=== PATIENT | female | born 1930 | race Caucasian/White ===

== ENCOUNTER → 2016-12-01 | Outpatient (CLI) | payer OTHER ==
[~2016-12-01] MED LIST: APRESOLINE25 MG PO; CARDIZEM CD300 MG PO; COUMADIN2.5 MG PO; COZAAR100 MG PO; Cardizem CD,Cartia X PO; Cozaar PO; DILTIAZEM 24HR360 M1 PO; FELDENE20 MG PO; FLOVENT 22120 INHALA IH; HYDRALAZINE HCL25 MG PO; HYDRALAZINE HCL50 MG PO; HYDROCHLOROTH12.5 M3 PO; HYDROCHLOROTH12.5 MG PO; Hydrodiuril,Oretic,E PO; IRON325 MG PO; LOSARTAN POTAS100 MG PO; NAPROXEN250 MG PO; NEXIUM40 MG PO; NORCO 5/3251 TABLET PO; PRILOSEC20 MG PO; PROAIR HFA8.5 GM IH; PROTONIX40 MG PO; Proventil,Ventolin H IH; RANITIDINE HCL150 M1 PO; RANITIDINE HCL150 MG PO; ULTRAM50 MG PO; VISTARIL25 MG PO; [UNRECOGNIZED DRUG - OTHER]
== END | disposition home or self-care (01) ==
DX: R26.2 Difficulty in walking, not elsewhere classified (principal); M62.81 Muscle weakness (generalized); M25.662 Stiffness of left knee, not elsewhere classified; Z96.652 Presence of left artificial knee joint
CPT/HCPCS: 97110 GP; 97150 GO; 97161 GP; 97165 GO; G8978 GP; G8979 GP; G8980 GP; G8987 GO; G8988 GO; G8989 GO

== ENCOUNTER 2016-12-15 08:01 | Inpatient (IN) | payer OTHER ==
[~2016-12-15] VITALS: Ht 160 cm; Wt 80.6 kg
[~2016-12-15 08:01] MED LIST changes: -COUMADIN2.5 MG PO; -NORCO 5/3251 TABLET PO; -VISTARIL25 MG PO
[2016-12-15] MEDS ORDERED: HYDRALAZINE HCL50 MG PO (09:47)
[2016-12-15 09:50] VITALS: BP 170/60
[2016-12-15] MEDS ORDERED: COUMADIN2.5 MG PO (15:18)
[2016-12-15] MEDS ORDERED: NORCO 5/3251 TABLET PO (15:18)
[2016-12-15] MEDS ORDERED: VISTARIL25 MG PO (15:18)
[2016-12-15 17:58] VITALS: BP 132/62
[2016-12-15 20:35] VITALS: BP 161/70
[2016-12-16 00:59] VITALS: BP 146/66
[2016-12-16 04:25] VITALS: BP 136/60
[2016-12-16 06:06] LABS: HEMATOCRIT 32.3 % (36.0-46.0); MCV 83.9 FL (83-99)
[2016-12-16 06:19] LABS: INTER. NORMALIZED RATIO 1.1; PROTHROMBIN TIME 10.7 (9.2-11.2)
[2016-12-16 06:33] LABS: ANION GAP 8 MEQ/L (2-14); CHLORIDE 96 MEQ/L (99-109); GFR ESTIMATE (CALCULATED) > 59 mL/min/; GLUCOSE 129 mg/dL (70-99); POTASSIUM 3.9 MEQ/L (3.7-5.4); SAMPLE HEMOLYSIS CHECK 0; SAMPLE ICTERIC CHECK 0; SAMPLE LIPEMIA CHECK 0; SODIUM 129 MEQ/L (136-147); UREA NITROGEN (BUN) 11 mg/dL (9-23)
[2016-12-16 08:08] VITALS: BP 159/69
[2016-12-16 11:56] VITALS: BP 148/63
[2016-12-16 20:20] VITALS: BP 138/62
[2016-12-17 00:32] VITALS: BP 143/63
[2016-12-17 05:53] VITALS: BP 118/72
[2016-12-17 05:58] LABS: HEMATOCRIT 30.3 % (36.0-46.0); MCV 84.9 FL (83-99)
[2016-12-17 06:55] LABS: INTER. NORMALIZED RATIO 1.1; PROTHROMBIN TIME 11.6 (9.2-11.2)
[2016-12-17 08:13] VITALS: BP 160/70
[2016-12-17 13:45] LABS: ANION GAP 7 MEQ/L (2-14); CHLORIDE 97 MEQ/L (99-109); GFR ESTIMATE (CALCULATED) > 59 mL/min/; GLUCOSE 107 mg/dL (70-99); POTASSIUM 3.9 MEQ/L (3.7-5.4); SAMPLE HEMOLYSIS CHECK 0; SAMPLE ICTERIC CHECK 0; SAMPLE LIPEMIA CHECK 0; SODIUM 127 MEQ/L (136-147); UREA NITROGEN (BUN) 10 mg/dL (9-23)
[2016-12-17 15:34] LABS: URIC ACID 3.3 mg/dL (3.1-9.2)
[2016-12-17 15:58] VITALS: BP 164/70
[2016-12-17 21:23] LABS: ANION GAP 12 MEQ/L (2-14); CHLORIDE 96 MEQ/L (99-109); POTASSIUM 3.9 MEQ/L (3.7-5.4); SAMPLE HEMOLYSIS CHECK 0; SAMPLE ICTERIC CHECK 0; SAMPLE LIPEMIA CHECK 0; SODIUM 125 MEQ/L (136-147)
[2016-12-17 21:28] LABS: GFR ESTIMATE (CALCULATED) > 59 mL/min/; GLUCOSE 127 mg/dL (70-99); UREA NITROGEN (BUN) 9 mg/dL (9-23)
[2016-12-18] VITALS: BP 166/64
[2016-12-18 00:09] VITALS: BP 160/60
[2016-12-18 07:08] LABS: INTER. NORMALIZED RATIO 1.2
[2016-12-18 07:17] LABS: ANION GAP 9 MEQ/L (2-14); CHLORIDE 98 MEQ/L (99-109); GFR ESTIMATE (CALCULATED) > 59 mL/min/; POTASSIUM 4.4 MEQ/L (3.7-5.4); SAMPLE HEMOLYSIS CHECK 0; SAMPLE ICTERIC CHECK 0; SAMPLE LIPEMIA CHECK 0; UREA NITROGEN (BUN) 8 mg/dL (9-23)
[2016-12-18 07:25] LABS: GLUCOSE 87 mg/dL (70-99); SODIUM 132 MEQ/L (136-147)
[2016-12-18 08:08] VITALS: BP 122/78
[2016-12-18 10:08] VITALS: BP 122/62
[2016-12-18 10:33] LABS: HEMATOCRIT 29.3 % (36.0-46.0); MCH 28.2 PG (29.0-34.0); MCHC 32.8 G/DL (30.0-36.0); MCV 85.9 FL (83-99); MEAN PLAT.VOLUME 8.7 uM^3 (9.5-12.4); PLATELET COUNT 250 K/uL (156-360); RBC DIS.WIDTH-CV 13.7 % (11.8-14.6); RBC DIS.WIDTH-SD 43.1 % (39-53); RED BLOOD COUNT 3.41 M/uL (3.80-5.20); WHITE BLOOD COUNT 7.9 K/uL (4.1-10.2)
== END 2016-12-18 13:06 | DRG 467 ==
LOC: 3EAST 08:01 → 2SOUTH 08:01 → 3EAST 17:03
PROVIDERS: Internal Medicine Nephrology; Orthopaedic Surgery; Physician Assistant
PROC: 0SWW0JZ Revision of Synthetic Substitute in Left Knee Joint, Tibial Surface, Open Approach (ICD-10-PCS; principal; 2016-12-15)
DX: T84.013A Broken internal left knee prosthesis, initial encounter (principal); E87.1 Hypo-osmolality and hyponatremia; I10 Essential (primary) hypertension; D64.9 Anemia, unspecified; K21.9 Gastro-esophageal reflux disease without esophagitis; J45.909 Unspecified asthma, uncomplicated; Z96.651 Presence of right artificial knee joint; E66.9 Obesity, unspecified; Z68.30 Body mass index [BMI] 30.0-30.9, adult; Z85.3 Personal history of malignant neoplasm of breast; Z88.0 Allergy status to penicillin; Z88.2 Allergy status to sulfonamides; Z88.5 Allergy status to narcotic agent; Z88.6 Allergy status to analgesic agent
CPT/HCPCS: 80048; 80048 91; 83935; 84300; 84550; 85014; 85018; 85027; 85610; 94640; 94640 76; 94799; 99202; C1713; J0690; J1170; J2175; J2405; J7050; J7120; S0020

== ENCOUNTER 2017-05-23 00:56 | Observation (INO) | payer OTHER ==
[~2017-05-23] VITALS: Ht 167.6 cm; Wt 78.1 kg
[~2017-05-23 00:56] MED LIST changes: +COUMADIN2.5 MG PO; +NORCO 5/3251 TABLET PO; +VISTARIL25 MG PO
[2017-05-23 01:30] LABS: HEMATOCRIT 37.2 % (36.0-46.0); MCH 28.4 PG (29.0-34.0); MCHC 34.4 G/DL (30.0-36.0); MCV 82.5 FL (83-99); MEAN PLAT.VOLUME 8.4 uM^3 (9.5-12.4); PLATELET COUNT 355 K/uL (156-360); RBC DIS.WIDTH-CV 13.7 % (11.8-14.6); RED BLOOD COUNT 4.51 M/uL (3.80-5.20); WHITE BLOOD COUNT 10.7 K/uL (4.1-10.2)
[2017-05-23 01:41] LABS: CHLORIDE 95 mEq/L (99-109)
[2017-05-23 01:42] LABS: POTASSIUM 3.8 mEq/L (3.7-5.4); SODIUM 130 mEq/L (136-147)
[2017-05-23 01:43] LABS: GLUCOSE 103 mg/dL (70-99)
[2017-05-23 01:45] LABS: ANION GAP 13 MEQ/L (2-14)
[2017-05-23 01:47] LABS: GFR ESTIMATE (CALCULATED) > 59 mL/min/
[2017-05-23 01:48] LABS: UREA NITROGEN (BUN) 12 mg/dL (9-23)
[2017-05-23 06:40] VITALS: BP 180/72
[2017-05-23 07:30] VITALS: BP 142/65
[2017-05-23 11:05] LABS: ANION GAP 11 MEQ/L (2-14); CHLORIDE 98 MEQ/L (99-109); GFR ESTIMATE (CALCULATED) > 59 mL/min/; GLUCOSE 100 mg/dL (70-99); POTASSIUM 3.6 MEQ/L (3.7-5.4); SAMPLE HEMOLYSIS CHECK 0; SAMPLE ICTERIC CHECK 0; SAMPLE LIPEMIA CHECK 0; SODIUM 134 MEQ/L (136-147); UREA NITROGEN (BUN) 10 mg/dL (9-23)
[2017-05-23 12:04] VITALS: BP 138/74
== END 2017-05-23 13:27 | disposition home or self-care (01) ==
LOC: EME 00:56 → EDOF 05:18 → ENRESERV 05:26 → 5WEST 06:04
PROVIDERS: Emergency Medicine; Hospitalist
DX: R51 Headache (principal); E87.1 Hypo-osmolality and hyponatremia; I10 Essential (primary) hypertension; J45.909 Unspecified asthma, uncomplicated; Z86.73 Personal history of transient ischemic attack (TIA), and cerebral infarction without residual deficits; K21.9 Gastro-esophageal reflux disease without esophagitis; M19.90 Unspecified osteoarthritis, unspecified site; Z96.653 Presence of artificial knee joint, bilateral; Z85.3 Personal history of malignant neoplasm of breast; Z85.41 Personal history of malignant neoplasm of cervix uteri; Z91.013 Allergy to seafood; Z88.5 Allergy status to narcotic agent; Z88.6 Allergy status to analgesic agent; Z88.8 Allergy status to other drugs, medicaments and biological substances; Z88.0 Allergy status to penicillin; Z88.2 Allergy status to sulfonamides
CPT/HCPCS: 70450; 80048; 80048 91; 85027; 99281; 99285; G0378; J0780; J1200; J1885; J3010; J7030